=== PATIENT | female | born 1975 | race Caucasian/White ===

== ENCOUNTER 2016-12-23 18:50 | Emergency (ER) | payer BC ==
[2016-12-23 18:53] VITALS: BP 138/114; PULSE 129; RESP 20; TEMP 98.1; O2SAT 95
--- NOTE | 2016-12-23 19:17 | PD ---
HPI Chief Complaint: Altered Mental Status Time Seen by Provider: 18:56 Travel History International Travel<30 days: No Contact w/Intl Traveler<30days: No Traveled to known affect area: No History of Present Illness HPI 41yo F with PMH of binge drinking was brought in by [facility] for alcohol intoxication and found outside a bar. Pt has no signs of overt trauma and smells of alcohol. Pt is moving all extremities and intoxicated. Denies any specific complaints. Pt was here for similar intoxication in 2013 and had blood alcohol of 437. I spoke to her on the phone who states he is on his way here. PFSH Past Medical History Arthritis: Yes Blood Disorders: No Bipolar Disorder: Yes Cancer: No Cardiovascular Problems: No Endocrine: No Genitourinary: No Immune Disorder: No Musculoskeletal: Yes Neurologic: No Psychiatric: No Respiratory: No ?: Not Past Surgical History AICD: No Joint Replacement: No Pacemaker: No Social History Alcohol Use: Yes Tobacco Use: Yes ("OCCASIONALLY") Substance Use: Yes (CURRENTLY INTOXICATED) Allergies-Medications (Allergen,Severity, Reaction): Coded Allergies: No Known Allergies (Verified , 12/23/16) Reported Meds & Prescriptions Reported Meds & Active Scripts Active No Active Prescriptions or Reported Medications Physical Exam Narrative GENERAL: 41yo F intoxicated. SKIN: Warm and dry. HEAD: Atraumatic. Normocephalic. EYES: Pupils equal and round. EOMI. ENT: No nasal bleeding or discharge. Mucous membranes pink and moist. NECK: Trachea midline. No JVD. CARDIOVASCULAR: Regular rate and rhythm. No murmur appreciated. RESPIRATORY: No accessory muscle use. Clear to auscultation. Breath sounds equal bilaterally. GASTROINTESTINAL: Abdomen soft, non-tender, nondistended. No rebound tenderness or guarding. MUSCULOSKELETAL: No obvious deformities. No clubbing. No cyanosis. No edema. NEUROLOGICAL:Intoxicated but answers questions. No focal neurologic deficits. Data Data Last Documented VS Vital Signs Date Time Temp Pulse Resp B/P Pulse Ox O2 Delivery O2 Flow Rate FiO2 12/23/16 19:31 120 22 153/88 95 12/23/16 18:53 98.1 [facility] Medical Decision Making Medical Screen Exam Complete: Yes Emergency Medical Condition: Yes Differential Diagnosis Alcohol intoxication Narrative Course 41yo F with no signs of trauma and no focal neurologic deficit brought in here with alcohol intoxication. Pt is answering questions and arrived, willing to take her home and take responsibility of her. denies feeling threatened by her and wants to take her home. Pt denies any suicidal or homicidal ideations. Pt is ambulating and wants to go home with her . Diagnosis Primary Impression: Alcohol intoxication Qualified Code: F10.120 - Alcohol intoxication, uncomplicated Patient Instructions: General Instructions Departure Forms: Tests/Procedures Additional Instructions: Please return to the ED if symptoms worsen. Med/Other Pt SpecificInfo: No Change to Meds Scripts No Active Prescriptions or Reported Meds Disposition: 01 DISCHARGE HOME Condition: Stable Maria T Cagle Dec 23, 2016 19:17
[2016-12-23 19:31] VITALS: BP 153/88; PULSE 120; RESP 22; O2SAT 95
== END 2016-12-23 19:55 | disposition home or self-care (01) ==
LOC: PHED 18:50
DX: F10.129 Alcohol abuse with intoxication, unspecified (principal)
CPT/HCPCS: 99284

== ENCOUNTER 2017-10-21 00:09 | Emergency (ER) | payer BC, OTHER ==
[2017-10-21 00:15] VITALS: BP 125/77; PULSE 141; RESP 24; O2SAT 98
[2017-10-21 00:18] VITALS: BP 125/77; PULSE 133; RESP 24; TEMP 98.5; O2SAT 96
--- NOTE | 2017-10-21 00:28 | PD ---
HPI . [employer] Chief Complaint: Psychiatric problem Time Seen by Provider: 00:16 Travel History International Travel<30 days: No Contact w/Intl Traveler<30days: No History of Present Illness HPI This patient is brought to us by law enforcement as a [employer] Act. The [employer] papers state that she called her boyfriend stating that she wanted to . It is possible that she was pulled over in a traffic stop prior to presentation. Nonetheless, the patient reports that she has been drinking tonight. However, she denies suicidal ideation. 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 PFSH Past Medical History Arthritis: Yes Blood Disorders: No Bipolar Disorder: Yes Cancer: No Cardiovascular Problems: No Endocrine: No Genitourinary: No Immune Disorder: No Musculoskeletal: Yes Neurologic: No Psychiatric: No Respiratory: No Past Surgical History AICD: No Joint Replacement: No Pacemaker: No Social History Alcohol Use: Yes Tobacco Use: Yes ("OCCASIONALLY") Substance Use: Yes (CURRENTLY INTOXICATED) Allergies-Medications (Allergen,Severity, Reaction): Coded Allergies: No Known Allergies (Verified , 12/23/16) Reported Meds & Prescriptions Reported Meds & Active Scripts Active No Active Prescriptions or Reported Medications Review of Systems Except as stated in HPI: all other systems reviewed are Neg Psychiatric: Positive: Substance Abuse Physical Exam Narrative GENERAL: Awake and alert. Initially quite belligerent that she has settled down. SKIN: Warm and dry. HEAD: Normocephalic/atraumatic. EYES: Pupils are equal. Extraocular movements are intact. NECK: Normal range of motion. CARDIOVASCULAR: Regular rate and rhythm. RESPIRATORY: Nonlabored respirations. MUSCULOSKELETAL: Atraumatic. NEUROLOGICAL: A and O 3. Cranial nerves are intact. She is moving all 4 extremities equally. PSYCHIATRIC: Acutely intoxicated. No SI or HI. Poor judgment. Data Data Orders Orders Lorazepam Inj (Ativan Inj) (10/21/17 00:30) Haloperidol Inj (Haldol Inj) (10/21/17 00:30) [facility] Medical Decision Making Medical Screen Exam Complete: Yes Emergency Medical Condition: Yes Differential Diagnosis Differential diagnosis of altered mental status includes but is not limited to infection, electrolyte abnormality, neurological event, intoxication Narrative Course This patient presents to us as a [employer] Act. She is intoxicated. She denies suicidal ideation to me. She admits to alcohol abuse. 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 She states that she has no reason to want to . Diagnosis Primary Impression: Alcohol intoxication Qualified Codes: F10.920 - Alcohol use, unspecified with intoxication, uncomplicated Scripts No Active Prescriptions or Reported Meds Disposition: DISCHARGE HOME Condition: Angela Aguilar MD Oct 21, 2017 00:28
[2017-10-21] MEDS ORDERED: HALOPERIDOL LACTATE 5 MG/ML AMP IM ONE (00:30)
[2017-10-21] MEDS ORDERED: LORazepam 2 MG/ML VIAL IM ONE (00:30)
[2017-10-21] MEDS ORDERED: SODIUM CHLOR 0.9% 1000 ML INJ 1,000 ML IV ONE (00:45)
[2017-10-21 01:00] VITALS: BP 99/57; PULSE 104; RESP 16; O2SAT 99
[2017-10-21 01:30] VITALS: BP 94/58; PULSE 98; RESP 16; O2SAT 96
[2017-10-21 03:41] VITALS: BP 114/69; TEMP 98.1
== END 2017-10-21 04:05 | disposition home or self-care (01) ==
LOC: NEPD 00:09
DX: F10.920 Alcohol use, unspecified with intoxication, uncomplicated (principal); F31.9 Bipolar disorder, unspecified; M19.90 Unspecified osteoarthritis, unspecified site
CPT/HCPCS: 96361; 96374; 96375; 99281; J1630; J2060; J7030